=== PATIENT | male | born 1970 | race Caucasian/White ===

== ENCOUNTER 2022-11-07 04:29 | Inpatient (IN) | payer OTHER ==
[2022-11-07] VITALS (47 sets, daily range): BP systolic 107–147; BP diastolic 50–108; PULSE 65–112; RESP 10–28; TEMP 97.8–98.3
[~2022-11-07] VITALS: Ht 167.6 cm; Wt 90.7 kg
[2022-11-07] MEDS ORDERED: HEPARIN 5000 UNITS/ML VIAL IV ONE (04:45)
[2022-11-07] MEDS ORDERED: MORPHINE SULFATE 4 MG/ML CPJ (NOT FOR IM USE) IV ONE (04:45)
[2022-11-07] MEDS ORDERED: HEPARIN 5000 UNITS/ML VIAL IV NR (05:15)
[2022-11-07] MEDS ORDERED: IODIXANOL 320MG/ML 100 ML BOTTLE IV ONE (05:23)
[2022-11-07] MEDS ORDERED: HEPARIN 1000 UNITS/ML 10ML ONE (05:23)
[2022-11-07] MEDS ORDERED: FENTANYL CITRATE/PF 50MCG/ML 2ML VIAL ONE (05:24)
[2022-11-07] MEDS ORDERED: MIDAZOLAM HCL 2 MG/2 ML VIAL ONE (05:24)
[2022-11-07] MEDS ORDERED: LIDOCAINE HCL 1% 20ML VIAL (Pyxis) INJ ONE (05:24)
[2022-11-07 05:45] LABS: EOSINOPHILS % 6.6 % (0.0-5.0); HEMATOCRIT. 49.1 % (42.0-52.0); HEMOGLOBIN. 16.6 g/dL (14.0-18.0); LYMPHOCYTES % 56.2 % (20.0-50.0); MEAN CORPUSCULAR HEMOGLOBIN 29.6 pg (28.0-32.0); MEAN CORPUSCULAR HGB CONC 33.8 g/dL (31.0-37.0); MEAN CORPUSCULAR VOLUME 87.6 fL (80.0-94.0); MEAN PLATELET VOLUME 9.9 fl (7.4-10.4); MONOCYTES % 8.3 % (2.0-8.0); NEUTROPHILS % 27.9 % (40.0-76.0); PLATELET 171 x1000/uL (130-400); RED BLOOD CELL COUNT 5.61 mill/uL (4.7-6.1); RED CELL DISTRIBUTION WIDTH 14.8 % (11.6-14.6); WHITE BLOOD COUNT 7.1 x1000/uL (4.5-11.0)
[2022-11-07] MEDS ORDERED: HYDRALAZINE 20MG/ML VIAL ONE (05:59)
[2022-11-07] MEDS ORDERED: TICAGRELOR 90 MG TABLET PO ONE (05:59)
[2022-11-07 06:05] LABS: CHLORIDE 104 mEq/L (98-107); INDEX HEMOLYSI 4 (1-3); INDEX ICTERIC 1 (1-4); INDEX LIPEMIC 1 (1-3); POTASSIUM 3.9 mEq/L (3.5-5.1); SODIUM 136 mEq/L (136-145)
[2022-11-07 06:15] LABS: ALANINE AMINOTRANSFERASE 115 IU/L (13-61); ASPARTATE AMINOTRANSFERASE 52 IU/L (15-37); BILIRUBIN TOTAL 0.4 mg/dL (0.1-1.0); CALCIUM 8.9 mg/dL (8.5-10.1); CARBON DIOXIDE 22 mEq/L (21-32); ETHANOL BLOOD < 10 mg/dL (<10); GLUCOSE 142 mg/dL (70-105); NT PRO B-TYPE NATRIURETIC PEP 54 pg/mL (5-125); PROTEIN TOTAL 8.3 g/dL (6.0-8.3); UREA NITROGEN BLOOD 16 mg/dL (7-21)
[2022-11-07] MEDS ORDERED: METOPROLOL TARTRATE 25MG TABLET PO NR (06:15)
[2022-11-07] MEDS ORDERED: ASPIRIN 81MG TABLET PO NR (06:15)
[2022-11-07] MEDS ORDERED: ACETAMINOPHEN 325MG TABLET PO PRN ×3 (06:15→08:30)
[2022-11-07] MEDS ORDERED: ATROPINE SULFATE 1MG/10ML SYR IV PRN (06:15)
[2022-11-07 06:21] LABS: TROPONIN I HIGH SENSITIVITY 10210 ng/L (<78)
[2022-11-07] MEDS ORDERED: LISINOPRIL 5MG TABLET PO NR (08:00)
[2022-11-07] MEDS: SODIUM CHLORIDE 0.45% 1,000 ML IV SCH ×2 (08:18→16:21)
[2022-11-07] MEDS ORDERED: DOCUSATE SODIUM 100MG CAPSULE PO PRN (08:30)
[2022-11-07] MEDS ORDERED: IPRATROPIUM/ALBUTEROL 0.5-3(2.5)MG/3ML NEB HHN PRN (08:30)
[2022-11-07] MEDS ORDERED: GUAIFENESIN 200MG/10ML SUGAR FREE UDC PO PRN (08:30)
[2022-11-07] MEDS ORDERED: MAGNESIUM/ALUMINUM HYDROXIDE/SIMETHICONE 30ML UDC PO PRN (08:30)
[2022-11-07] MEDS: ONDANSETRON HCL 4MG/2ML INJ IV PRN ×2 (09:05→14:19)
[2022-11-07] MEDS: CLOPIDOGREL 75MG TABLET PO SCH (09:28)
[2022-11-07] MEDS ORDERED: INFLUENZA VACCINE IM ONE (10:30)
[2022-11-07 10:44] LABS: INDEX HEMOLYSI 1 (1-3); INDEX ICTERIC 1 (1-4); INDEX LIPEMIC 1 (1-3)
[2022-11-07 11:05] LABS: CHOLESTEROL 202 mg/dL (<200); HDL CHOLESTEROL 45 mg/dL (40-59); LDL CHOLESTEROL 140 mg/dL (5-100); TRIGLYCERIDE 239 mg/dL (0-150)
[2022-11-07] MEDS ORDERED: MELO-104 PO (13:02)
[2022-11-07] MEDS ORDERED: BENA40TA91 MT (13:02)
[2022-11-07] MEDS: NITROGLYCERIN 0.4MG TABLET SL SL PRN ×2 (14:20→16:21)
[2022-11-07 18:31] LABS: TROPONIN I HIGH SENSITIVITY > 25000 ng/L (<78)
[2022-11-07] MEDS: FAMOTIDINE 20MG TABLET PO SCH (20:37)
[2022-11-07] MEDS ORDERED: ATORVASTATIN CALCIUM 40MG TABLET PO SCH (21:00)
[2022-11-08] VITALS (46 sets, daily range): BP systolic 94–143; BP diastolic 61–102; PULSE 61–101; RESP 11–25; TEMP 97.8–99
[2022-11-08] MEDS: SODIUM CHLORIDE 0.45% 1,000 ML IV SCH ×3 (02:56→23:58)
[2022-11-08 06:26] LABS: BASOPHILS % 0.4 % (0.0-2.0); EOSINOPHILS % 0.5 % (0.0-5.0); HEMOGLOBIN. 14.8 g/dL (14.0-18.0); LYMPHOCYTES % 26.1 % (20.0-50.0); MEAN CORPUSCULAR HEMOGLOBIN 29.4 pg (28.0-32.0); MEAN CORPUSCULAR HGB CONC 33.7 g/dL (31.0-37.0); MEAN CORPUSCULAR VOLUME 87.1 fL (80.0-94.0); MEAN PLATELET VOLUME 9.2 fl (7.4-10.4); MONOCYTES % 9.1 % (2.0-8.0); NEUTROPHILS % 63.9 % (40.0-76.0); PLATELET 136 x1000/uL (130-400); RED BLOOD CELL COUNT 5.05 mill/uL (4.7-6.1); RED CELL DISTRIBUTION WIDTH 14.4 % (11.6-14.6); WHITE BLOOD COUNT 6.3 x1000/uL (4.5-11.0)
[2022-11-08 06:40] LABS: CHLORIDE 107 mEq/L (98-107); INDEX HEMOLYSI 1 (1-3); INDEX ICTERIC 1 (1-4); INDEX LIPEMIC 1 (1-3); POTASSIUM 3.9 mEq/L (3.5-5.1); SODIUM 136 mEq/L (136-145)
[2022-11-08 06:47] LABS: ALBUMIN 3.3 g/dL (3.4-5.0); CALCIUM 8.9 mg/dL (8.5-10.1); CARBON DIOXIDE 23 mEq/L (21-32); CREATININE 0.8 mg/dL (0.6-1.3); GLUCOSE 136 mg/dL (70-105); PROTEIN TOTAL 6.9 g/dL (6.0-8.3); UREA NITROGEN BLOOD 9 mg/dL (7-21)
[2022-11-08 06:48] LABS: ALANINE AMINOTRANSFERASE 161 IU/L (13-61); ASPARTATE AMINOTRANSFERASE 382 IU/L (15-37); BILIRUBIN DIRECT < 0.1 mg/dL (0.0-0.2); BILIRUBIN TOTAL 0.9 mg/dL (0.1-1.0)
[2022-11-08] MEDS: CLOPIDOGREL 75MG TABLET PO SCH (08:29)
[2022-11-08] MEDS: FAMOTIDINE 20MG TABLET PO SCH ×2 (08:29→20:09)
[2022-11-08] MEDS: ASPIRIN 81MG TABLET PO SCH (08:29)
[2022-11-08] MEDS ORDERED: FENTANYL CITRATE/PF 50MCG/ML 2ML VIAL ONE (09:07)
[2022-11-08] MEDS ORDERED: IODIXANOL 320MG/ML 100 ML BOTTLE IV ONE (09:07)
[2022-11-08] MEDS ORDERED: HEPARIN 1000 UNITS/ML 10ML ONE (09:07)
[2022-11-08] MEDS ORDERED: MIDAZOLAM HCL 2 MG/2 ML VIAL ONE (09:07)
[2022-11-08] MEDS ORDERED: VERAPAMIL HCL 2.5 MG/1 ML 2ML VIAL IV ONE (09:07)
[2022-11-08] MEDS ORDERED: LIDOCAINE HCL 1% 10 MG/ML 10ML VIAL ONE (09:08)
[2022-11-08] MEDS ORDERED: DIPHENHYDRAMINE 50MG/ML VIAL ONE (09:12)
[2022-11-08 09:32] LABS: TROPONIN I HIGH SENSITIVITY 246508 ng/L (<78)
[2022-11-08] MEDS ORDERED: CLOPIDOGREL 75MG TABLET ONE ×3 (09:54→10:09)
[2022-11-08] MEDS ORDERED: ACETAMINOPHEN 325MG TABLET PO PRN (10:15)
[2022-11-08] MEDS ORDERED: ATROPINE SULFATE 1MG/10ML SYR IV PRN (10:15)
[2022-11-08] MEDS: BENAZEPRIL 10MG TABLET PO SCH (10:23)
[2022-11-09] VITALS (30 sets, daily range): BP systolic 93–133; BP diastolic 56–88; PULSE 56–110; RESP 10–24; TEMP 98.1–98.8; O2SAT 93
[2022-11-09 06:27] LABS: BASOPHILS % 0.7 % (0.0-2.0); EOSINOPHILS % 0.8 % (0.0-5.0); HEMATOCRIT. 41.7 % (42.0-52.0); HEMOGLOBIN. 14.3 g/dL (14.0-18.0); LYMPHOCYTES % 34.6 % (20.0-50.0); MEAN CORPUSCULAR HGB CONC 34.2 g/dL (31.0-37.0); MEAN CORPUSCULAR VOLUME 87.9 fL (80.0-94.0); MEAN PLATELET VOLUME 8.9 fl (7.4-10.4); NEUTROPHILS % 54.9 % (40.0-76.0); PLATELET 127 x1000/uL (130-400); RED BLOOD CELL COUNT 4.75 mill/uL (4.7-6.1); RED CELL DISTRIBUTION WIDTH 14.3 % (11.6-14.6); WHITE BLOOD COUNT 5.9 x1000/uL (4.5-11.0)
[2022-11-09 06:40] LABS: CHLORIDE 108 mEq/L (98-107); INDEX HEMOLYSI 1 (1-3); INDEX ICTERIC 1 (1-4); INDEX LIPEMIC 1 (1-3); POTASSIUM 3.6 mEq/L (3.5-5.1); SODIUM 136 mEq/L (136-145)
[2022-11-09 06:46] LABS: CALCIUM 8.1 mg/dL (8.5-10.1); CARBON DIOXIDE 24 mEq/L (21-32); CREATININE 0.9 mg/dL (0.6-1.3); GLUCOSE 121 mg/dL (70-105); UREA NITROGEN BLOOD 11 mg/dL (7-21)
[2022-11-09] MEDS: CLOPIDOGREL 75MG TABLET PO SCH (09:32)
[2022-11-09] MEDS: ASPIRIN 81MG TABLET PO SCH (09:33)
[2022-11-09] MEDS: BENAZEPRIL 10MG TABLET PO SCH (09:33)
[2022-11-09] MEDS: FAMOTIDINE 20MG TABLET PO SCH (09:33)
[2022-11-09] MEDS: SODIUM CHLORIDE 0.45% 1,000 ML IV SCH (09:34)
[2022-11-09] MEDS ORDERED: FAMO20TA8 PO (11:12)
[2022-11-09] MEDS ORDERED: COR3 MT (11:12)
[2022-11-09] MEDS ORDERED: BENA10TA74 PO (11:12)
[2022-11-09] MEDS ORDERED: ASPI-1160 PO (11:12)
[2022-11-09] MEDS ORDERED: CLOP-31 PO (11:12)
== END 2022-11-09 12:55 | disposition home or self-care (01) | DRG 246 ==
LOC: ER 04:29 → CVICU 05:13
PROVIDERS: ADMIT Internal Medicine; ATTEND Internal Medicine
PROC: 4A023N7 Measurement of Cardiac Sampling and Pressure, Left Heart, Percutaneous Approach (ICD-10-PCS; principal; 2022-11-08)
PROC: 027034Z Dilation of Coronary Artery, One Artery with Drug-eluting Intraluminal Device, Percutaneous Approach (ICD-10-PCS; 2022-11-08)
PROC: B211YZZ Fluoroscopy of Multiple Coronary Arteries using Other Contrast (ICD-10-PCS; 2022-11-08)
DX: I21.09 ST elevation (STEMI) myocardial infarction involving other coronary artery of anterior wall (principal); I50.21 Acute systolic (congestive) heart failure; E44.1 Mild protein-calorie malnutrition; I11.0 Hypertensive heart disease with heart failure; E66.9 Obesity, unspecified; R74.01 Elevation of levels of liver transaminase levels; E78.5 Hyperlipidemia, unspecified; I25.10 Atherosclerotic heart disease of native coronary artery without angina pectoris; R73.03 Prediabetes; R73.9 Hyperglycemia, unspecified; Z68.32 Body mass index [BMI] 32.0-32.9, adult
CPT/HCPCS: 36415; 71045; 80048; 80053; 80061; 80076; 80320; 82962; 83036; 83880; 84484; 85025; 85347; 87426; 93005; 93306; 93970; 99291; C9803; J0360; J1200; J1644; J2250; J2270; J2405; J3010; J3490; Q9967; G0480; J8499

== ENCOUNTER 2023-04-10 18:14 | Inpatient (IN) | payer OTHER ==
[~2023-04-10] VITALS: Ht 167.6 cm; Wt 88.0 kg
[~2023-04-10 18:14] MED LIST: ASPI-1160 PO; BENA10TA74 PO; CLOP-31 PO; COR3 MT; FAMO20TA8 PO; MELO-104 PO
[2023-04-10 20:14] LABS: CLARITY URINE CLEAR (CLEAR); COLOR URINE YELLOW (YELLOW); GLUCOSE URINE NEGATIVE (NEGATIVE); KETONES URINE NEGATIVE (NEGATIVE); LEUKOCYTE ESTERASE URINE NEGATIVE (NEGATIVE); NITRITE URINE NEGATIVE (NEGATIVE); OCCULT BLOOD URINE NEGATIVE (NEGATIVE); PH URINE 5.5 (4.5-8.0); PROTEIN URINE NEGATIVE (NEGATIVE); SPECIFIC GRAVITY URINE 1.006 (1.005-1.030); UROBILINOGEN URINE 0.2 E.U./dL (0.2-1.0)
[2023-04-10 21:22] LABS: BASOPHILS % 0.5 % (0.0-2.0); EOSINOPHILS % 2.7 % (0.0-5.0); HEMOGLOBIN. 15.5 g/dL (14.0-18.0); LYMPHOCYTES % 41.3 % (20.0-50.0); MEAN CORPUSCULAR HEMOGLOBIN 30.2 pg (28.0-32.0); MEAN CORPUSCULAR HGB CONC 34.4 g/dL (31.0-37.0); MEAN CORPUSCULAR VOLUME 87.8 fL (80.0-94.0); MEAN PLATELET VOLUME 8.7 fl (7.4-10.4); MONOCYTES % 8.7 % (2.0-8.0); NEUTROPHILS % 46.8 % (40.0-76.0); PLATELET 139 x1000/uL (130-400); RED BLOOD CELL COUNT 5.13 mill/uL (4.7-6.1); RED CELL DISTRIBUTION WIDTH 14.6 % (11.6-14.6); WHITE BLOOD COUNT 4.5 x1000/uL (4.5-11.0)
[2023-04-10 21:41] LABS: ALANINE AMINOTRANSFERASE 43 IU/L (10-49); ALBUMIN 4.7 g/dL (3.2-4.8); ASPARTATE AMINOTRANSFERASE 32 IU/L (<34); BILIRUBIN TOTAL 0.4 mg/dL (0.1-1.0); CALCIUM 9.8 mg/dL (8.7-10.4); CARBON DIOXIDE 26 mEq/L (21-32); CHLORIDE 103 mEq/L (98-107); GLUCOSE 102 mg/dL (70-105); POTASSIUM 4.3 mEq/L (3.5-5.1); PROTEIN TOTAL 7.4 g/dL (6.0-8.3); SODIUM 136 mEq/L (136-145); UREA NITROGEN BLOOD 16 mg/dL (9-23)
[2023-04-10 21:44] LABS: TROPONIN I HIGH SENSITIVITY 557 ng/L (3.0-53)
[2023-04-10] MEDS ORDERED: CLONIDINE 0.1MG TABLET PO PRN (23:30)
[2023-04-10] MEDS ORDERED: IPRATROPIUM/ALBUTEROL 0.5-3(2.5)MG/3ML NEB HHN PRN (23:30)
[2023-04-10] MEDS ORDERED: ACETAMINOPHEN 325MG TABLET PO PRN ×2 (23:30)
[2023-04-10] MEDS ORDERED: DOCUSATE SODIUM 100MG CAPSULE PO PRN (23:30)
[2023-04-10] MEDS: ENOXAPARIN 100MG/ML SYR SUBCUT NR (23:45)
[2023-04-11 01:11] LABS: PROTHROMBIN TIME 11.1 sec (9.6-11.0)
[2023-04-11 01:28] LABS: ALBUMIN 4.4 g/dL (3.2-4.8); T4 FREE 1.13 ng/dL (0.89-1.76); THYROID STIMULATING HORMONE 4.26 uIU/mL (0.55-4.78)
[2023-04-11 01:39] VITALS: BP 132/56; PULSE 85; RESP 18; TEMP 98.2
[2023-04-11 04:00] VITALS: BP 118/66; PULSE 59; RESP 18; TEMP 97.3
[2023-04-11 06:54] LABS: HEMATOCRIT 42.3 % (42.0-52.0); HEMOGLOBIN 14.5 g/dL (14.0-18.0); MEAN CORPUSCULAR HEMOGLOBIN 30.1 pg (28.0-32.0); MEAN CORPUSCULAR HGB CONC 34.3 g/dL (31.0-37.0); MEAN CORPUSCULAR VOLUME 87.7 fL (80.0-94.0); PLATELET 136 x1000/uL (130-400); RED BLOOD CELL COUNT 4.82 mill/uL (4.7-6.1); RED CELL DISTRIBUTION WIDTH 14.8 % (11.6-14.6); WHITE BLOOD COUNT 4.4 x1000/uL (4.5-11.0)
[2023-04-11 08:00] VITALS: BP 111/72; PULSE 48; RESP 18; TEMP 97.5
[2023-04-11 08:07] LABS: CALCIUM 9.2 mg/dL (8.7-10.4); CARBON DIOXIDE 23 mEq/L (21-32); CHLORIDE 105 mEq/L (98-107); CREATINE KINASE MB FRACTION 1.9 ng/mL (0.5-3.6); CREATININE 0.9 mg/dL (0.6-1.3); GLUCOSE 102 mg/dL (70-105); POTASSIUM 3.7 mEq/L (3.5-5.1); SODIUM 137 mEq/L (136-145); UREA NITROGEN BLOOD 14 mg/dL (9-23)
[2023-04-11 08:36] LABS: TROPONIN I HIGH SENSITIVITY 511 ng/L (3.0-53)
[2023-04-11] MEDS: CLOPIDOGREL 75MG TABLET PO SCH (08:53)
[2023-04-11] MEDS: ASPIRIN 81MG TABLET PO SCH (08:53)
[2023-04-11] MEDS: BENAZEPRIL 10MG TABLET PO SCH (08:54)
[2023-04-11] MEDS: CARVEDILOL 3.125 MG TABLET PO SCH (08:55)
[2023-04-11] MEDS: FAMOTIDINE 20MG TABLET PO SCH (08:55)
[2023-04-11] MEDS: ENOXAPARIN 100MG/ML SYR SUBCUT SCH (09:26)
[2023-04-11] MEDS ORDERED: FENTANYL CITRATE/PF 50MCG/ML 2ML VIAL ONE (10:04)
[2023-04-11] MEDS ORDERED: HEPARIN 1000 UNITS/ML 10ML ONE (10:04)
[2023-04-11] MEDS ORDERED: DIPHENHYDRAMINE 50MG/ML VIAL ONE (10:04)
[2023-04-11] MEDS ORDERED: MIDAZOLAM HCL 2 MG/2 ML VIAL ONE (10:04)
[2023-04-11] MEDS ORDERED: LIDOCAINE HCL 1% 20ML VIAL (Pyxis) INJ ONE (10:04)
[2023-04-11] MEDS ORDERED: IODIXANOL 320MG/ML 100 ML BOTTLE IV ONE (10:05)
[2023-04-11 10:34] LABS: TROPONIN I HIGH SENSITIVITY 546 ng/L (3.0-53)
[2023-04-11 12:00] VITALS: BP 99/61; PULSE 47; RESP 18; TEMP 97.9
[2023-04-11] MEDS ORDERED: VERAPAMIL HCL 2.5 MG/1 ML 2ML VIAL IV ONE (13:01)
[2023-04-11] MEDS: ISOSORBIDE MONONITRATE 30MG TABLET SR 24HR PO SCH (14:30)
[2023-04-11 20:00] VITALS: BP 109/64; PULSE 54; RESP 20; TEMP 97.4
[2023-04-11] MEDS: ATORVASTATIN CALCIUM 40MG TABLET PO SCH (20:31)
[2023-04-11 21:24] LABS: CREATINE KINASE MB FRACTION 1.3 ng/mL (0.5-3.6)
[2023-04-12] VITALS: BP 85/45; PULSE 51; RESP 18; TEMP 97.3
[2023-04-12 02:00] VITALS: BP 106/63; PULSE 52; RESP 18; TEMP 97.4
[2023-04-12 04:00] VITALS: BP 92/47; PULSE 51; RESP 20; TEMP 97.2
[2023-04-12 06:21] LABS: BASOPHILS % 0.4 % (0.0-2.0); EOSINOPHILS % 2.3 % (0.0-5.0); HEMATOCRIT. 43.4 % (42.0-52.0); HEMOGLOBIN. 14.6 g/dL (14.0-18.0); LYMPHOCYTES % 40.3 % (20.0-50.0); MEAN CORPUSCULAR HEMOGLOBIN 30.6 pg (28.0-32.0); MEAN CORPUSCULAR HGB CONC 33.6 g/dL (31.0-37.0); MEAN PLATELET VOLUME 8.8 fl (7.4-10.4); MONOCYTES % 9.3 % (2.0-8.0); NEUTROPHILS % 47.7 % (40.0-76.0); PLATELET 122 x1000/uL (130-400); RED BLOOD CELL COUNT 4.77 mill/uL (4.7-6.1); RED CELL DISTRIBUTION WIDTH 14.8 % (11.6-14.6)
[2023-04-12 06:44] LABS: CARBON DIOXIDE 21 mEq/L (21-32); CHLORIDE 107 mEq/L (98-107); CREATININE 0.9 mg/dL (0.6-1.3); GLUCOSE 104 mg/dL (70-105); PHOSPHORUS 3.4 mg/dL (2.5-4.9); POTASSIUM 4.1 mEq/L (3.5-5.1); SODIUM 137 mEq/L (136-145); UREA NITROGEN BLOOD 13 mg/dL (9-23)
[2023-04-12 08:00] VITALS: BP 109/64; PULSE 56; RESP 18; TEMP 97.7
[2023-04-12] MEDS ORDERED: LIP40 PO (10:51)
[2023-04-12] MEDS ORDERED: ISOS30TA91 PO (10:51)
[2023-04-12 12:00] VITALS: BP 128/79; PULSE 54; RESP 18; TEMP 97.7
[2023-04-12 12:16] VITALS: BP 128/79; PULSE 51; TEMP 97.8; O2SAT 98
== END 2023-04-12 16:44 | disposition home or self-care (01) | DRG 280 ==
LOC: ER 18:14 → 8WST 23:05 → EDBEDREQ 23:15 → EDBEDREQTM 23:15 → EDBEDREQSVC 23:15
PROVIDERS: ADMIT Internal Medicine; ATTEND Internal Medicine
PROC: 4A023N7 Measurement of Cardiac Sampling and Pressure, Left Heart, Percutaneous Approach (ICD-10-PCS; principal; 2023-04-11)
PROC: B211YZZ Fluoroscopy of Multiple Coronary Arteries using Other Contrast (ICD-10-PCS; 2023-04-11)
DX: I21.4 Non-ST elevation (NSTEMI) myocardial infarction (principal); I50.23 Acute on chronic systolic (congestive) heart failure; E11.9 Type 2 diabetes mellitus without complications; E78.5 Hyperlipidemia, unspecified; I11.0 Hypertensive heart disease with heart failure; E66.9 Obesity, unspecified; Z20.822 Contact with and (suspected) exposure to COVID-19; I25.10 Atherosclerotic heart disease of native coronary artery without angina pectoris; Z68.31 Body mass index [BMI] 31.0-31.9, adult; Z95.1 Presence of aortocoronary bypass graft; Z95.5 Presence of coronary angioplasty implant and graft; Z79.899 Other long term (current) drug therapy; Z82.49 Family history of ischemic heart disease and other diseases of the circulatory system
CPT/HCPCS: 36415; 71045; 80048; 80053; 80061; 81003; 82040; 82553; 83036; 83605; 83735; 83880; 84100; 84439; 84443; 84484; 85025; 85027; 87426; 93005; 93306; 93458; 99285; C1769; C1887; C1893; J1200; J1644; J1650; J2250; J3010; J3490; Q9967